=== PATIENT | male | born 1960 | race Caucasian/White ===

== ENCOUNTER → 2025-04-11 | Day surgery (SDC) | payer MEDICARE ==
[2025-04-07 12:59] LABS: BASOPHILS % 0.8 % (0.0-1.0); EOSINOPHILS % 2.0 % (0.0-6.0); LYMPHOCYTES % 25.7 % (18.0-39.1); MONOCYTES % 10.1 % (4.4-11.3); NEUTROPHILS % 61.1 % (38.7-80.0); RED CELL DISTRIBUTION WIDTH 12.4 % (11.7-14.4)
[2025-04-07 13:18] LABS: INR 1.15
[2025-04-07 13:23] LABS: EST GLOMERULAR FILTRATION RATE 52.0 ML/MIN (>=60)
[~2025-04-11] MED LIST: ASPIRIN81 MG PO; ATORVASTATIN CA20 MG PO; CARVEDILOL3.125 MG PO; CLOPIDOGREL75 MG PO; CRESTOR10 MG PO; D3-5000125 MCG; EFFIENT10 MG PO; ENTRESTO 24 MG1 EACH; ENTRESTO 49 MG1 EACH PO; FAMOTIDINE20 MG PO; FARXIGA10 MG; FUROSEMIDE40 MG PO; GLIMEPIRIDE2 MG PO; LIDOCAINE HCL 2% LOCAL INJ 5 ML SDV VIAL INJ ONE; LISINOPRIL10 MG PO; PROBIOTIC & AC1 EACH PO; PROPOFOL IV EMULSION 10 MG/ML 20 ML VIAL ONE; VASCEPA1 GM; VELTASSA16.8 GM
[2025-04-11] MEDS: LACTATED RINGER'S 1,000 ML ONE (08:10)
[2025-04-11 09:09] VITALS: TEMP 97.7
[2025-04-11 09:55] VITALS: BP 135/88; PULSE 57; RESP 16; O2SAT 99
== END | disposition home or self-care (01) ==
LOC: OR 06:08
PROVIDERS: ATTEND Internal Medicine Gastroenterology
DX: K29.50 Unspecified chronic gastritis without bleeding (principal); K21.9 Gastro-esophageal reflux disease without esophagitis; K44.9 Diaphragmatic hernia without obstruction or gangrene; I11.0 Hypertensive heart disease with heart failure; I50.9 Heart failure, unspecified; I25.10 Atherosclerotic heart disease of native coronary artery without angina pectoris; E78.5 Hyperlipidemia, unspecified; E11.9 Type 2 diabetes mellitus without complications; I25.2 Old myocardial infarction; E66.812 Obesity, class 2; Z68.35 Body mass index [BMI] 35.0-35.9, adult; Z79.82 Long term (current) use of aspirin; Z79.02 Long term (current) use of antithrombotics/antiplatelets; Z79.84 Long term (current) use of oral hypoglycemic drugs; Z79.899 Other long term (current) drug therapy; Z01.810 Encounter for preprocedural cardiovascular examination; Z01.812 Encounter for preprocedural laboratory examination
CPT/HCPCS: 36415 ×2; 43239; 80048; 82948; 85025; 85610; 85730; 93005; J2003; J2704; J7121